=== PATIENT | male | born 1945 | race Caucasian/White ===

== ENCOUNTER → 2019-04-22 | Outpatient (CLI) | payer MEDICARE ==
[~2019-04-22] MED LIST: BUPR300T4 PO; DONE10TA56 PO; LOSA50TA14 PO; MEMA10TA20 PO; NEFA200T PO; OMEP-110 PO; PRAV20TA2 PO; RASA1TAB2 PO; SOLI10TA2 PO; TRIA1CAP3 PO
== END | disposition home or self-care (01) ==
LOC: CVU 11:47
PROVIDERS: ATTEND Internal Medicine Cardiovascular Disease
CPT/HCPCS: 93306